=== PATIENT | female | born 1945 | race Caucasian/White ===

== ENCOUNTER → 2016-12-16 | Outpatient (CLI) | payer MEDICARE, OTHER ==
--- NOTE | ~2016-12-16 | BD1 ---
[facility] A Service of [facility] & [facility] RADIOLOGY TEXT RESULTS PATIENT: ALEKSANDRA GANNON LOCATION: [facility] : 43 UNIT #: [id number] AGE: [address]: Carlos Armenta MD SEX: F ORDER DR: [id number] [address] [address] [id number] O MR#: [id number] Acc #: [id number] NAME: ALEKSANDRA GANNON : 1945 SEX: F STUDY DATE/TIME: 12/16/2016 10:25 UNIT: [facility] ROOM: STUDY DESCRIPTION: BD Dexa Bone Dens 1+ Site Attending Physician: Carlos Armenta M.D. Referring Physician: Carlos Armenta M.D. Ordering Physician: Carlos Armenta M.D. Primary Care Physician: Magda Padron M.D. MEDICAL IMAGING REPORT This report is preliminary unless electronic signature is present. EXAM DXA scan 12/16/2016 HISTORY Status post menopause with no hormone replacement therapy. Osteopenia. Hypertension with blood pressure medication for 8 years. FINDINGS Bone mineral density in the lumbar spine from L1-L4 was 1.223 g/cm2, which is 0.4 standard deviations above the mean when compared to the young adult reference population, which is within the range of normal. This is 1.7 standard deviations above the mean when compared to the age-matched population. Bone mineral density in the left femoral neck was 0.946 g/cm2, which is 0.7 standard deviations below the mean when compared to the young adult reference population, which is within the range of normal. This is 0.9 standard deviations above the mean when compared to the age-matched population. Bone mineral density in the right femoral neck was 0.905 g/cm2, which is 1 standard deviation below the mean when compared to the young adult reference population, which is characteristic of osteopenia. This is 0.6 standard deviations above the mean when compared to the age-matched population. IMPRESSION Bone mineral density in the lumbar spine and the left hip within the range of normal and within the right hip characteristic of osteopenia. Dictated by... Efren Mehta M.D. [facility] A Service of [facility] & [facility] RADIOLOGY TEXT RESULTS PATIENT: ALEKSANDRA GANNON LOCATION: [facility] : 43 UNIT #: [id number] AGE: [address]: Carlos Armenta MD SEX: F ORDER DR: THIS IS AN ELECTRONICALLY VERIFIED REPORT Efren Mehta M.D. at 12/18/2016 8:06 AM YAHIR/kostas TD: 12/17/2016 12:16 JOB #: [id number] MEDICAL IMAGING REPORT Page 1 of 1
== END | disposition home or self-care (01) ==
LOC: SRAD 10:05
DX: Z13.820 Encounter for screening for osteoporosis (principal); E21.0 Primary hyperparathyroidism; Z78.0 Asymptomatic menopausal state
CPT/HCPCS: 77080

== ENCOUNTER → 2016-12-30 | Outpatient (CLI) | payer MEDICARE, OTHER ==
--- NOTE | ~2016-12-30 | CT5 ---
[facility] A Service of [facility] RADIOLOGY TEXT RESULTS PATIENT: ALEKSANDRA GANNON LOCATION: [facility] : 41 UNIT #: [id number] AGE: [address]: Rafy Bryson MD SEX: F ORDER DR: [id number] [place] [id number] O MR#: [id number] Acc #: [id number] NAME: ALEKSANDRA GANNON : 1945 SEX: F STUDY DATE/TIME: 12/30/2016 10:31 UNIT: [facility] ROOM: STUDY DESCRIPTION: CT Abdomen W Cont Attending Physician: Rafy Bryson M.D. Referring Physician: Rafy Bryson M.D. Ordering Physician: Rafy Bryson M.D. Primary Care Physician: Magda Padron M.D. MEDICAL IMAGING REPORT This report is preliminary unless electronic signature is present. EXAM CT of the abdomen with contrast. HISTORY Breast cancer. Observation for metastatic disease. TECHNIQUE CT of the abdomen and pelvis was performed following the administration of oral and IV contrast. Coronal and sagittal reformatted images were obtained. This CT exam was performed with one or more of the following radiation dose reduction techniques: automatic exposure control, adjustment of mA and/or kV according to patient size, and iterative reconstruction. COMPARISON STUDIES There are no comparison studies available. FINDINGS Please refer to the separately dictated CT of the chest for findings above the diaphragm. These include a small subcentimeter nodule in the right lower lobe. As well as a couple tiny nodules in the left lower lobe. The liver is unremarkable. Cholecystectomy. The spleen is unremarkable. The kidneys are unremarkable. The adrenal glands and pancreas are unremarkable. The bone windows are unremarkable. IMPRESSION No evidence for metastatic disease. [facility] A Service [facility] RADIOLOGY TEXT RESULTS PATIENT: ALEKSANDRA GANNON LOCATION: [facility] : 41 UNIT #: [id number] AGE: [address]: Rafy Bryson MD SEX: F ORDER DR: Dictated by... Austin Flores M.D. THIS IS AN ELECTRONICALLY VERIFIED REPORT Austin Flores M.D. at 01/01/2017 7:25 AM ANA/deejay TD: 12/30/2016 17:48 JOB #: [id number] MEDICAL IMAGING REPORT Page 1 of 1
--- NOTE | ~2016-12-30 | CT55 ---
[facility] A Service of [facility] & [facility] RADIOLOGY TEXT RESULTS PATIENT: ALEKSANDRA GANNON LOCATION: [facility] : 41 UNIT #: [id number] AGE: [address]: Rafy Bryson MD SEX: F ORDER DR: [id number] [place] [id number] O MR#: [id number] Acc #: [id number] NAME: ALEKSANDRA GANNON : 1945 SEX: F STUDY DATE/TIME: 12/30/2016 12:02 UNIT: [facility] ROOM: STUDY DESCRIPTION: CT Chest W Con Attending Physician: Rafy Bryson M.D. Referring Physician: Rafy Bryson M.D. Ordering Physician: Rafy Bryson M.D. Primary Care Physician: Magda Padron M.D. MEDICAL IMAGING REPORT This report is preliminary unless electronic signature is present. EXAM CT chest with IV contrast COMPARISON None INDICATION 71-year-old female with history of breast cancer 12 years ago treated with bilateral mastectomy and implant reconstruction now reports tightness in the chest for [address] imaging of the chest was performed after IV administration of 100 mL Isovue-370. Coronal and sagittal reformats were constructed. This CT exam was performed with one or more of the following radiation dose reduction techniques: automatic exposure control, adjustment of mA and/or kV according to patient size, and iterative reconstruction. FINDINGS Surgical clips are noted in both breasts. There are also surgical clips in the right axilla. There are bilateral subpectoral breast implants which appear to be silicone. No convincing evidence of extracapsular rupture is seen on this exam although the left implant is partly excluded from field of view. No axillary, internal mammary or mediastinal adenopathy. Left and right-sided coronary artery calcifications. Normal heart size without pericardial effusion. Question if there is a right-sided coronary artery stent. There is normal caliber of the thoracic aorta and pulmonary artery. Please note that evaluation for pulmonary embolus is suboptimal due to timing of contrast bolus. No central pulmonary embolus is seen. Airways are widely patent. No pneumothorax, pleural effusion or pneumonia. Small hiatal hernia. Calcification at the origin of the celiac artery without evidence of STS. [facility] A Service of [facility] & [facility] RADIOLOGY TEXT RESULTS PATIENT: ALEKSANDRA GANNON LOCATION: [facility] : 41 UNIT #: [id number] AGE: [address]: Rafy Bryson MD SEX: F ORDER DR: significant associated stenosis. There is nodular density in the right pulmonary apex measuring up to 5.0 mm. There is mild emphysema. Separate pleural-based nodular density in the right upper lobe measures up to approximately 5.0 mm. In the right middle lobe there is noncalcified nodule measuring up to 3.0 mm, very close to the minor fissure. In the right lower lobe near the major fissure there is a separate nodule measuring up to approximately 5.0 mm, possibly representing an intrapulmonary lymph node. There is an area of band-like atelectasis at the right lung base abutting the diaphragm. In the right lower lobe near the major fissure there is a lobular nodule best appreciated on the sagittal reformat measuring up to approximately 9.0 mm. There is an adjacent satellite nodule measuring up to 3.0 mm. In the posterior basilar segment left lower lobe there is a 4.0 mm noncalcified nodule and adjacent 4.0 mm noncalcified nodule. There is a 2.0 mm nodule within the left upper lobe and in the right middle lobe there is a separate 3.0 mm nodule. Tiny 3.0 mm nodule is noted in the left lower lobe. Noncalcified 4.0 mm nodule in the left upper lobe. There is bulky degenerative facet disease of the lower cervical spine. This is on the right. Mild grade 1 anterolisthesis of C6 on C7, likely degenerative in nature. No acute fractures or suspicious osseous lesions. There are calcifications in the splenic artery near the splenic hilum without evidence of aneurysm. Prior cholecystectomy. No adenopathy in the visualized upper abdomen. Incompletely visualized hypoattenuation in the periphery of the right kidney is consistent with volume averaging from the scar in this location noted on the CT abdomen on the same date. IMPRESSION 1. Changes of the bilateral mastectomy and right axillary lymph node dissection as well as bilateral subpectoral silicone implant reconstruction. No evidence of implant rupture is seen although the left implant and left breast is partly excluded from field of view. Correlation with site of patient's pain is recommended. If there is lateral left breast pain, sonographic evaluation could be performed. 2. No evidence of osseous metastatic disease or adenopathy within the chest or imaged upper abdomen. 3. Numerous pulmonary nodules largest of which measures up to 9.0 mm. There is a background of mild emphysema. Statistically the findings would seem to reflect sequela of remote pulmonary granulomatous infection but given the patient's history, metastatic disease to the lungs cannot be excluded. The largest nodule measures up to 9.0 mm and is likely below resolution of PET. CT chest followup without IV contrast is recommended in 3 months to document stability. Comparison with prior outside chest CT would be helpful to document stability, if this has been performed elsewhere. Otherwise, recommendations would stand for a 3-month followup CT. 4. Coronary artery calcifications and calcifications within the origin of the celiac artery. No evidence of significant stenosis of the celiac artery. [facility] A Service of [facility] RADIOLOGY TEXT RESULTS PATIENT: ALEKSANDRA GANNON LOCATION: [facility] : 41 UNIT #: [id number] AGE: [address]: Rafy Bryson MD SEX: F ORDER DR: 5. Small hiatal hernia. 6. Degenerative changes of the cervical spine. Dictated by... Az Russo M.D. THIS IS AN ELECTRONICALLY VERIFIED REPORT Az Russo M.D. at 01/02/2017 5:00 PM [place] TD: 12/31/2016 11:49 JOB #: [id number] MEDICAL IMAGING REPORT Page 1 of 1
[2016-12-30 10:50] LABS: POC - CREATININE 0.88 mg/dL (0.44-1.03); POC - GFR >60.0 mL/min (>60)
== END | disposition home or self-care (01) ==
LOC: SCT 10:29
PROVIDERS: Internal Medicine Hematology & Oncology
DX: Z08 Encounter for follow-up examination after completed treatment for malignant neoplasm (principal); R91.8 Other nonspecific abnormal finding of lung field; I25.10 Atherosclerotic heart disease of native coronary artery without angina pectoris; I70.8 Atherosclerosis of other arteries; K44.9 Diaphragmatic hernia without obstruction or gangrene; M47.812 Spondylosis without myelopathy or radiculopathy, cervical region; Z85.3 Personal history of malignant neoplasm of breast; Z90.13 Acquired absence of bilateral breasts and nipples; Z98.82 Breast implant status
CPT/HCPCS: 71260; 74160; 82565; Q9967